=== PATIENT | male | born 1990 | race African-American/Black ===

== ENCOUNTER 2019-07-14 06:34 | Emergency (ER) | payer SELFPAY ==
[~2019-07-14] VITALS: Ht 172.7 cm; Wt 68.0 kg
[2019-07-14 06:34] VITALS: BP 112/58
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
[2019-07-14 07:34] VITALS: BP 112/58
--- NOTE | 2019-07-14 07:35 | NUR ---
Patient discharged INCUSTODY with v/s stable. Written and verbal after care instructions given and explained. Patient verbalized understanding. Ambulatory with steady gait. All questions addressed prior to discharge. Advised to follow up with PMD.
== END 2019-07-14 07:35 | disposition home or self-care (01) ==
LOC: MED 06:34
DX: Z04.1 Encounter for examination and observation following transport accident (principal); Z71.6 Tobacco abuse counseling; F17.200 Nicotine dependence, unspecified, uncomplicated; V89.2XXA Person injured in unspecified motor-vehicle accident, traffic, initial encounter; Y93.89 Activity, other specified; Y92.410 Unspecified street and highway as the place of occurrence of the external cause; Y99.8 Other external cause status
CPT/HCPCS: 71045; 99283